=== PATIENT | female | born 1990 | race Caucasian/White ===

== ENCOUNTER 2020-09-06 16:54 | Emergency (ER) | payer BC, OTHER ==
[~2020-09-06] VITALS: Ht 152.4 cm; Wt 74.8 kg
[~2020-09-06 16:54] MED LIST: FLONASE 0.05%50 MCG NASAL; IBUPROFEN 600600 M1 PO; ZPAK PO
[2020-09-06] MEDS ORDERED: EUTHYROX50 MCG PO (17:22)
[2020-09-06 17:23] LABS: BASOPHILS 0.3 % (0.0-2.0); EOSINOPHILS 0.6 % (0.0-3.0); LYMPHOCYTES 14.8 % (24.0-44.0); MCH 26.8 pg (26.0-34.0); MCHC 32.6 g/dL (28.0-37.0); MCV 82.5 fL (80.0-100.0); MONOCYTES 5.9 % (1.0-8.0); PLATELET COUNT 195 thou/uL (150-400); POLYS 78.4 % (36.0-66.0); RBC 4.48 mil/uL (4.20-5.00); RDW 12.9 % (10.5-14.5); WBC 17.8 thou/uL (4.0-11.0)
[2020-09-06 18:51] LABS: ANION GAP 13 mmol/L (7-16); BUN 9 mg/dL (7-18); CALCIUM 8.6 mg/dL (8.5-10.1); CHLORIDE 105 mmol/L (98-107); CO2 22 mmol/L (21-32); CREATININE 1.2 mg/dL (0.6-1.0); GLUCOSE 172 mg/dL (74-106); POTASSIUM 3.7 mmol/L (3.5-5.1); SODIUM 140 mmol/L (136-145)
[2020-09-06 18:56] LABS: LIPASE 85 U/L (73-393); SGOT 47 U/L (15-37); SGPT 66 U/L (14-59); TOTAL BILIRUBIN 0.4 mg/dL (0.2-1.0); TOTAL PROTEIN 7.5 g/dL (6.4-8.2); TROPONIN-I <0.06 ng/mL (<0.06)
[2020-09-06 20:55] VITALS: BP 115/55
[2020-09-06 21:30] VITALS: BP 124/66; BP 125/77
[2020-09-06 22:09] VITALS: BP 120/73
--- NOTE | 2020-09-07 06:44 | EKG ---
[address] [address] ELECTROCARDIOGRAM REPORT Name: TATO WILDER Room #: REG LARA Claire#: [id number] Admission: 09/06/20 Attend Phys: Discharge: Date of : 89 Report #: [id number] [facility] ED Test Date: 2020-09-06 Test Time: 16:58:16 Pat Name: TATO WILDER Department: Room: Gender: F [employer]: damián : 1990 Requested By: Lona Eastman Order Number: [id number] MD: Yash Allan Measurements Intervals [place] Rate: 106 P: 55 MT: 101 QRS: 43 QRSD: 85 T: 17 QT: 314 QTc: 417 Interpretive Statements Sinus tachycardia Borderline T wave abnormalities No previous ECG available for comparison Electronically Signed On 09-07-2020 6:44:34 CDT by Yash Allan [email or web address] <ELECTRONICALLY SIGNED> By: Yash Allan MD, [facility] 09/07/20 [id number] Yash Allan MD, FACC /EPI
== END 2020-09-06 20:50 | disposition short-term general hospital (02) ==
LOC: ER 16:54
PROVIDERS: Physician Assistant
DX: I82.4Z1 Acute embolism and thrombosis of unspecified deep veins of right distal lower extremity (principal); I26.99 Other pulmonary embolism without acute cor pulmonale; R58 Hemorrhage, not elsewhere classified; I95.9 Hypotension, unspecified; R10.31 Right lower quadrant pain; Z88.1 Allergy status to other antibiotic agents; Z88.5 Allergy status to narcotic agent; Z88.0 Allergy status to penicillin; Z88.2 Allergy status to sulfonamides; Z79.899 Other long term (current) drug therapy

== ENCOUNTER 2020-12-20 21:40 | Emergency (ER) | payer BC, OTHER ==
[~2020-12-20] VITALS: Ht 152.4 cm; Wt 72.6 kg
[~2020-12-20 21:40] MED LIST changes: +EUTHYROX50 MCG PO
[2020-12-20] MEDS ORDERED: XARELTO15 MG PO (21:54)
[2020-12-20] MEDS ORDERED: PERCOCET 5-3251 EACH PO (23:45)
[2020-12-21 00:27] VITALS: BP 108/56
== END 2020-12-21 00:06 | disposition home or self-care (01) ==
LOC: ER 21:40
DX: S93.401A Sprain of unspecified ligament of right ankle, initial encounter (principal); E03.9 Hypothyroidism, unspecified; Z90.89 Acquired absence of other organs; Z79.899 Other long term (current) drug therapy; Z88.6 Allergy status to analgesic agent; Z88.1 Allergy status to other antibiotic agents; Z88.5 Allergy status to narcotic agent; Z88.0 Allergy status to penicillin; Z88.2 Allergy status to sulfonamides; W18.39XA Other fall on same level, initial encounter; Y93.89 Activity, other specified; Y92.89 Other specified places as the place of occurrence of the external cause; Y99.8 Other external cause status